=== PATIENT | male | born 1960 | race Caucasian/White ===

== ENCOUNTER 2022-07-15 10:22 | Day surgery (SDC) | payer OTHER ==
[~2022-07-15] VITALS: Ht 152.4 cm; Wt 95.3 kg
[2022-07-15] MEDS ORDERED: fentaNYL citrate 0.05 MG/ML VIAL ONE (13:44)
[2022-07-15] MEDS ORDERED: MIDAZOLAM 5 MG/5 ML VIAL ONE (13:44)
[2022-07-15] MEDS ORDERED: LIDOCAINE 2% 100 MG/5 ML UJET TP ONE (13:45)
[2022-07-15] MEDS ORDERED: fentaNYL citrate 0.05 MG/ML VIAL IVP ONE (14:40)
[2022-07-15] MEDS ORDERED: MIDAZOLAM 2 MG/2 ML VIAL IVP ONE (14:40)
== END 2022-07-15 15:00 | disposition home or self-care (01) ==
LOC: MOR 10:22 → MMU 10:22 → MOR 15:00
PROVIDERS: ATTEND Internal Medicine Gastroenterology
DX: Z12.11 Encounter for screening for malignant neoplasm of colon (principal); D12.5 Benign neoplasm of sigmoid colon; K57.30 Diverticulosis of large intestine without perforation or abscess without bleeding; K21.00 Gastro-esophageal reflux disease with esophagitis, without bleeding; E78.00 Pure hypercholesterolemia, unspecified; Z90.89 Acquired absence of other organs; Z98.890 Other specified postprocedural states; Z79.899 Other long term (current) drug therapy; Z20.822 Contact with and (suspected) exposure to COVID-19
CPT/HCPCS: 36415; 43239; 45385; 86677; 87426; J2250; J3010